=== PATIENT | female | born 1980 | race Asian ===

== ENCOUNTER 2024-08-09 12:17 | Emergency (ER) | payer OTHER, SELFPAY ==
[2024-08-09 12:21] VITALS: BP 130/75
[2024-08-09 12:57] LABS: % Basophils 0.6 % (0-2); % Eosinophils 1.3 % (0-6); % Immature Granulocytes 0.3 % (0-0.5); % Lymphocytes 34.3 % (20.5-51.1); % Monocytes 7.1 % (1.7-9.3); % Neutrophils 56.4 % (42.2-75.2); Absolute Basophils 0.1 10^3/uL (0-0.2); Absolute Eosinophils 0.1 10^3/uL (0-0.7); Absolute Lymphocytes 2.9 10^3/uL (1.2-3.4); Absolute Monocytes 0.6 10^3/uL (0.1-0.6); Absolute Neutrophils 4.8 10^3/uL (1.4-6.5); Hematocrit 32.3 % (37.0-47.0); Hemoglobin 10.5 g/dL (12.0-16.0); Mean Corp Hgb Conc. 32.5 g/dL (33.0-37.0); Mean Corpuscular Hgb 27.7 pg (27.0-31.0); Mean Corpuscular Volume 85.2 fL (81.0-99.0); Mean Platelet Volume 9.6 fL (7.4-10.4); Nucleated Red Blood Cells % 0 %; Platelet Count 347 10^3/uL (130-400); Red Blood Cell Count 3.79 10^6/uL (4.20-5.40); Red Cell Dist. Width 13.4 % (11.5-14.5); White Blood Cell Count 8.6 10^3/uL (4.8-10.8)
[2024-08-09 13:08] VITALS: BMI 30.8
[2024-08-09 13:08] LABS: HCG, Serum Qualitative Screen Negative
[2024-08-09 13:09] LABS: ALT (SGPT) 20 U/L (0-35); AST (SGOT) 26 U/L (14-36); Albumin 4.6 g/dl (3.5-5.0); Alkaline Phosphatase 75 U/L (38-126); Blood Urea Nitrogen 9 mg/dl (7-17); Calcium 9.5 mg/dl (8.4-10.2); Carbon Dioxide 15 mmol/L (22-30); Chloride 108 mmol/L (98-107); Estimated Creatinine Clearance 81 ml/min; Glucose 159 mg/dl (70-99); Potassium 3.7 mmol/L (3.5-5.1); Sodium 141 mmol/L (135-145); Total Bilirubin 0.6 mg/dl (0.2-1.3); Total Protein 7.3 g/dl (6.3-8.2); eGFR > 60.00
--- NOTE | 2024-08-09 13:44 | ED.GENMED ---
History of Present Illness
General
Chief Complaint: Vaginal Bleeding
Source: patient
Exam Limitations: none
Time Seen by Provider: 08/09/24 13:20
Nursing documentation reviewed up to this point in time: agreed with
History of Present Illness
History of Present Illness:
Patient is a 43-year-old female presenting to the emergency department with vaginal bleeding and lower abdominal cramping. Patient states that she had a period of heavy vaginal bleeding early July for which she was seen by her [employer] and started
on medroxyprogesterone to stop bleeding. She has continued to take medroxyprogesterone once daily until last when she had an endometrial biopsy. Following the endometrial biopsy�bleeding returned and she was instructed to call her [employer]
if it persisted past 7 days.
Patient states she has had persistent bleeding and lower abdominal cramping since endometrial biopsy. She has noticed that she is passing a few clots. Patient denies any chest pain, shortness of breath, dizziness/lightheadedness, urinary symptoms.
Review of Systems
Review of Systems
Allergies reviewed?: Yes
All Other Systems: ROS reviewed and negative except as documented in HPI and ROS
Phy Exam
Physical Exam
Physical Exam:
Vitals: Patient's vital signs are stable. Afebrile
General: Patient is well appearing, no acute distress. Nontoxic-appearing
Skin: Warm and dry, no rashes or lesions
Head: Normocephalic, atraumatic
Eyes: Sclera nonicteric.
Throat: Protecting airway
Neck: Normal ROM, no cervical spine tenderness, no meningismus
Cardiac: Regular rate and rhythm, no murmurs.
Pulm: Normal respiratory effort, no wheezes, rales, rhonchi heard on exam.
Abdomen: Abdomen soft. Mild lower abdominal tenderness without rebound tenderness or guarding. No CVA tenderness
Extremities: No evidence of cyanosis or edema. Great distal pulses
Neuro: AAOx3. Grossly intact.
Psychiatric: Normal affect.
Course
Orders/Labs/Results
Orders:
Orders
08/09/24 12:47
Test Result ONCE
08/09/24 12:48
Type+Screen Urgent
Complete Blood Count/With Diff Urgent
Comprehensive Metabolic Panel Urgent
HCG, Serum Qualitative Screen Urgent
08/09/24 13:03
ABO2 Urgent
BBK Wristband Number:
Associate notified that ABO2 has been ordered: [id number]
Date: 08/09/24
Time: 13:01
Senior Maintenance Technician ID: [id number]
08/09/24 13:41
Pelvis (Non Obstetric) US [US Pelvis Only (non-obstetric)] Urgent
Comment: recent endometrial biopsy
Reason For Exam: persistent vaginal bleeding/cramping
08/09/24 15:48
Basic Metabolic Panel Urgent
08/09/24 16:51
Ibuprofen [Motrin] 400 mg PO NOW STA
Abnormal Lab Results
08/09/24 08/09/24
12:48 15:48
RBC 3.79 L 10^6/uL
(4.20-5.40)
Hgb 10.5 L g/dL
(12.0-16.0)
Hct 32.3 L %
(37.0-47.0)
MCHC 32.5 L g/dL
(33.0-37.0)
Chloride 108 H mmol/L 108 H mmol/L
(98-107) (98-107)
Carbon Dioxide 15 L mmol/L 21 L mmol/L
(22-30) (22-30)
Glucose 159 H mg/dl 124 H mg/dl
(70-99) (70-99)
08/09/24 12:48
08/09/24 15:48
Vital Signs
Initial and Last Documented VS:
Initial Vital Signs
Temp Pulse Resp BP Pulse Ox
98.1 F 69 18 130/75 97
08/09/24 12:21 08/09/24 12:21 08/09/24 12:21 08/09/24 12:21 08/09/24 12:21
Last Documented Vital Signs
Temp Pulse Resp BP Pulse Ox
98.1 F 84 25 130/75 97
08/09/24 12:21 08/09/24 13:03 08/09/24 13:03 08/09/24 12:21 08/09/24 12:21
MDM/Problems Addressed
Differential Diagnosis Includes:
Not limited to: Menstrual bleeding, fibroid, malignancy, post-biopsy bleeding
MDM/Problems Addressed:
43 year old female presenting with vaginal bleeding s/p endometrial biopsy 2 days ago. Patient does have mild lower abdominal cramping, as well. Denies any fevers, nausea/vomiting, or urinary symptoms. Recently taken the medroxyprogesterone to
stop menstrual bleeding although instructed to discontinue by [employer] at time of endometrial biopsy. Vital signs are stable. Patient is afebrile. Exam as above. Patient very well-appearing, nontoxic and conversational. Abdomen soft and
nontender. No rebound tenderness or guarding. Cardio/pulmonary assessment unremarkable. Patient is perfusing well. Basic labs obtained in triage which show mild anemia with a hemoglobin of 10.5. Patient was found to be acidotic with a CO2 of 15
upon arrival. Patient was not hyperventilating and has no recent history of nausea/vomiting. Will repeat this value. test is negative. Will obtain pelvic ultrasound. Patient declines any Toradol/Motrin at this time.
Update 4 PM: Pelvic ultrasound without any abnormal findings. Into reassess patient at bedside who states pain has improved and she has not saturated through any pads while in the emergency department. Repeat BMP pending.
Update 4:31 PM: Repeat CO2 of 21. Suspect vaginal bleeding likely secondary to menstrual cycle versus recent endometrial biopsy. No indication for transfusion or admission to hospital. Do not suspect infectious process. Patient is stable for
discharge with [employer] follow-up outpatient. Return precautions discussed with patient. Patient comfortable with plan. Case discussed with attending physician.
Chronic conditions affecting care:
N/A
Acute Exacerbation and/or Progression of Chronic Illness:
Abnormal uterine bleeding
*Radiology
Radiology exam reviewed: radiology read reviewed
*Pulse Oximetry
Patient hypoxic: no
*EKG
Interpreted by ED Provider?: NA
*Puncher And Fastener Interpretation
Rate: Puncher And Fastener- N/A
*Critical Care Note
Total Time (30-74mins, 75-104mins- exclusive of procedures): Not Applicable
ED Attending Note
-
Portions of this chart may have been created with voice recognition software.� Occasional wrong word or��sound alike� substitutions may have occurred due to the inherent limitations of voice recognition software.
Discharge Plan
Departure
Patient Disposition: Home (Routine Discharge)
Date of Disposition: 08/09/24
Time of Disposition: 16:32
Patient with high blood pressure during this ER visit?: No
Condition: Good
Covid-19: Not Applicable
Discharge Problem:
Vaginal bleeding
Instructions: Heavy Periods (DC), Endometrial Biopsy
Referrals:
Erika Jack, DO [Family Provider] -
Activity Restrictions/Additional Instructions:
Return to the emergency department with any severe, persistent bleeding, shortness of breath, dizziness/lightheadedness, severe abdominal pain, worsening in current symptoms or any other concerns
As discussed�it is important stay well-hydrated. You should take Motrin at home as needed for abdominal cramping. It is important that you call your [employer] on Sunday and arrange appropriate follow-up outpatient.
Monitor your symptoms closely and return to the emergency department with any acute worsening/new symptoms or any other concerns
Interventions
Interventions:
*Risk Screen - Suicide Last Done: 08/09/24 12:51
*General Assessment Last Done: 08/09/24 12:21
*Neglect/Abuse Screening Last Done: 08/09/24 12:51
ED- Fall Risk Assessment Last Done: 08/09/24 12:51
*ED COVID-19 Vaccine History Last Done: 08/09/24 12:51
*Nursing Disposition Last Done: 08/09/24 17:11
ED-Female Genitourinary Assessment Last Done: 08/09/24 12:51
Discharge Date and Time
Discharge Date/Time: 08/09/24 17:11
Print Language: [id number]
[2024-08-09 16:25] LABS: Blood Urea Nitrogen 9 mg/dl (7-17); Calcium 9.1 mg/dl (8.4-10.2); Carbon Dioxide 21 mmol/L (22-30); Chloride 108 mmol/L (98-107); Estimated Creatinine Clearance 92 ml/min; Glucose 124 mg/dl (70-99); Sodium 140 mmol/L (135-145); eGFR > 60.00
== END 2024-08-09 17:11 | disposition home or self-care (01) ==
LOC: EMR 12:17
PROVIDERS: Physician Assistant; EMERGENCY PHYSICIAN Emergency Medicine; FAMILY PHYSICIAN Family Medicine
DX: N93.9 Abnormal uterine and vaginal bleeding, unspecified (principal); D64.9 Anemia, unspecified; R10.30 Lower abdominal pain, unspecified
CPT/HCPCS: 99284; 76856; 80048; 80053; 84703; 85025; 86850; 86900; 86901

== ENCOUNTER → 2024-09-25 08:43 | Outpatient (REF) | payer OTHER, SELFPAY | LOC: HWWDC 08:43 | PROVIDERS: ATTENDING PHYSICIAN Student in an Organized Health Care Education/Training Program; FAMILY PHYSICIAN Nurse Practitioner Adult Health | DX: Z12.31 Encounter for screening mammogram for malignant neoplasm of breast (principal) | CPT/HCPCS: 77063; 77067 ==